=== PATIENT | female | born 1955 | race Hispanic/Latino ===

== ENCOUNTER 2017-04-11 08:24 | Day surgery (SDC) | payer MEDICARE, BC ==
[2017-04-01 08:50] VITALS: BMI 21.5
[2017-04-11 09:12] LABS: BASO # 0.02 K/mm3 (0.0-2.0); BASO % 0.4 % (0.0-3.0); EOS # 0.1 (0.0-0.7); EOS % 3.1 % (1.5-5.0); GRAN # 2.54 (1.4-6.5); GRAN % 57.2 % (50.0-68.0); HEMOGLOBIN 13.4 gm/dL (12.0-16.0); LYMPH # 1.5 (1.2-3.4); LYMPH % 34.4 % (22.0-35.0); MEAN CELL VOLUME 98.3 fL (80.0-105.0); MEAN CORPUSCULAR HEMOGLOBIN 31.9 pg (25.0-35.0); MEAN CORPUSCULAR HGB CONC 32.4 g/dl (31.0-37.0); MEAN PLATELET VOLUME 11.9 fl (7.0-11.0); MONO # 0.2 (0.1-0.6); MONO % 4.9 % (1.0-6.0); PLATELET COUNT 133 10^3/uL (120.0-450.0); RED CELL DISTRIBUTION WIDTH 12.7 % (11.5-14.5); WHITE BLOOD COUNT 4.5 10^3/ul (4.5-11.0)
[2017-04-11 09:23] LABS: INR 1.03 (0.93-1.08); PARTIAL THROMBOPLASTIN TIME 27.1 Seconds (23.7-30.8); PROTHROMBIN TIME 11.1 Seconds (9.9-11.8)
[2017-04-11 09:25] LABS: ALB/GLOB RATIO 1.3 (1.1-1.8); ALT/SGPT 17 U/L (7-56); AST/SGOT 28 U/L (15-39); BLOOD UREA NITROGEN 23 mg/dL (7-21); CALCIUM 9.6 mg/dL (8.4-10.5); GFR AFRICAN-AMERICAN > 60; GFR NON-AFRICAN AMERICAN > 60; HDL CHOLESTEROL 61 mg/dL (29-60)
[2017-04-11 09:36] LABS: LDL CHOLESTEROL 72 mg/dL (0-129)
[2017-04-11] MEDS ORDERED: Flumazenil 0.1 mg/ml Inj (5ml) IVP ONE (10:13)
[2017-04-11] MEDS ORDERED: Naloxone 0.4 mg/ml Inj (Adult) ONE (10:13)
[2017-04-11] MEDS ORDERED: Midazolam 2 MG/2 ML VIAL ONE ×2 (10:13→10:52)
[2017-04-11] MEDS ORDERED: Lidocaine 2% Inj (20ml) ONE (10:18)
[2017-04-11] MEDS ORDERED: Heparin 0 ML IV ONE (10:18)
[2017-04-11] MEDS ORDERED: Midazolam 2 MG/2 ML VIAL IV ONE ×2 (10:23→10:24)
[2017-04-11 11:12] VITALS: O2SAT 100
[2017-04-11] MEDS ORDERED: Sodium Chloride 0.9% 1,000 ML IV SCH (11:30)
--- NOTE | 2017-04-11 11:39 | CARD ---
APPROVED REPORT HISTORY The Patient is a 61 year-old female with a history of CVA PROCEDURES Loop recorder ImplantationReveal [id number] INDICATIONS R/o Arrythmia Hx of Recent CVA IMPLANTED DEVICES Med[employer] Reveal LINQ OPERATIVE NOTE The patient was brought to the Cardiac Catheterization Laboratory in a fasting state and was prepped and draped in a sterile manner. Left side of chest Icm lateral to mid line at 4th intercostal space 2% lidocaine was injected and pocket for Loop recirder Implantation was created with blade 11 knife and then Reveal LINQ was injected into pocket, and then Dermabond was applied at entry wound.Post procedure Reveal was interogated and found adequate settings. Pt tolerated the procedure well, and returned to PACU for Observation and discharge.( No sedation was give for this procedure as pt had 1.5 mg of Versed and 50mcg of Fentanyl for MARQUIS before lop recorder Implantation.) COMPLICATIONS None CONCLUSION Successful Implantation On loop recorder ( [employer]onic Reveal LINQ). arrangement has been made for transtelephonic monitoring and education give to Daughter Guillermina.F/u with Dr. heredia in 1-2 weeks. CC; No Dempsey MD.
[2017-04-11 11:48] VITALS: RESP 18; TEMP 97.7
--- NOTE | 2017-04-11 11:48 | CARD ---
APPROVED REPORT EXAM: Transesophageal echocardiogram with color flow Doppler. INDICATION CVA/CAD Reason For Test : Rule out cardiac source of emboli. PROCEDURE After obtaining informed consent, patient underwent transesophageal echo in the Echo Lab. Type of Sedation : Conscious Sedation Sedation was administered by Dr. heredia. Sedation was achieved with Versed and , Fentanyl 1.5 mg and 50 mcg intravenously. Echo enhancement indication: R/O Septal defect. Echo enhancement agent administered: Agitated Saline The MARQUIS was performed without complications. Throughout the procedure, the blood pressure, pulse oximetry, cardiac rhythm, and rate were monitored. The patient tolerated the procedure without adverse effects. Recovery from conscious sedation was uneventful and vital signs were stable. LEFT VENTRICLE The left ventricle is normal size. There is mild left ventricular hypertrophy. The left ventricular function is normal.EF-65% There is normal LV segmental wall motion. The left ventricular diastolic function is normal. No left ventricle thrombus noted on this study. There is no ventricular septal defect visualized. There is no left ventricular aneurysm. There is no mass noted in the left ventricle. RIGHT VENTRICLE The right ventricle is normal size. There is normal right ventricular wall thickness. The right ventricular systolic function is normal. ATRIA The left atrium is mildly dilated. The right atrium is mildly dilated. The interatrial septum is intact with no evidence for an atrial septal defect. AORTIC VALVE The aortic valve is normal in structure. Trivial aortic regurgitation There is no aortic valvular stenosis. There is no aortic valvular vegetation. MITRAL VALVE The mitral valve is normal in structure. There is no evidence of mitral valve prolapse. There is no mitral valve stenosis. Mitral regurgitation is trace. TRICUSPID VALVE The tricuspid valve is normal in structure. There is mild tricuspid regurgitation. There is no tricuspid valve prolapse or vegetation. There is no tricuspid valve stenosis. PULMONIC VALVE The pulmonary valve is normal in structure. Trivial PI There is no pulmonic valvular stenosis. GREAT VESSELS The aortic root is normal in size. The ascending aorta is normal in size. The pulmonary artery is normal. The IVC is normal in size and collapses >50% with inspiration. PERICARDIAL EFFUSION There is no pericardial effusion. There is no pleural effusion. <Conclusion> The left ventricle is normal size. There is mild left ventricular hypertrophy. The left ventricular function is normal.EF-65% There is no mass noted in the left ventricle. There is no left ventricular aneurysm. Trivial aortic and pulmonary regurgitation. Mitral regurgitation is trace. There is mild tricuspid regurgitation. 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 No plaque ic Ascending or Arch of aorta noted, Velocity in BOOM more than 0.4 m/s. CC; Moises Gibbs MD
[2017-04-11 14:33] VITALS: BP 122/60; PULSE 59
== END 2017-04-11 13:40 | disposition home or self-care (01) ==
LOC: SDSVAS 08:24
PROVIDERS: ATTEND Internal Medicine Cardiovascular Disease
DX: I08.1 Rheumatic disorders of both mitral and tricuspid valves (principal); I37.1 Nonrheumatic pulmonary valve insufficiency; I25.10 Atherosclerotic heart disease of native coronary artery without angina pectoris; I10 Essential (primary) hypertension; Z86.73 Personal history of transient ischemic attack (TIA), and cerebral infarction without residual deficits
CPT/HCPCS: 33282; 36415; 80053; 80061; 85025; 85610; 85730; 86850; 86900; 93312; C1764; J2250; J3010; J7040 ×2